=== PATIENT | female | born 1980 | race Caucasian/White ===

== ENCOUNTER 2023-01-01 16:46 | Emergency (ER) | payer MEDICAID, OTHER ==
[~2023-01-01] VITALS: Ht 157.5 cm; Wt 72.6 kg
[2023-01-01 18:01] VITALS: BP 185/125
[2023-01-01] MEDS ORDERED: NACL 0.9% 1,000 ML IV SCH (18:20)
[2023-01-01] MEDS ORDERED: ONDANSETRON 4 MG/2 ML VIAL IVP ONE (18:20)
[2023-01-01] MEDS ORDERED: MORPHINE SULFATE 4 MG/ML SYR IVP ONE (18:20)
--- NOTE | 2023-01-01 18:33 | NUR ---
PT C/O LT FOOT PAIN WITH DISCHARGE, FEVER, CHILLS, PAIN 10/10. NO ACUTE DISTRESS.
[2023-01-01 18:49] LABS: BASOPHILS # (AUTO) 0.1 K/uL (0.00-0.22); BASOPHILS % (AUTO) 0.8 % (0.0-2.0); EOSINOPHILS % (AUTO) 0.2 % (0.0-4.0); HEMATOCRIT 36.6 % (36-48); HEMOGLOBIN 12.7 g/dL (12.0-16.0); LYMPHOCYTES # (AUTO) 1.8 K/uL (2.5-16.5); LYMPHOCYTES % (AUTO) 14.5 % (20.5-51.1); MEAN CORPUSCULAR HEMOGLOBIN 30 pg (27-31); MEAN CORPUSCULAR HGB CONC 35 g/dL (33-37); MEAN CORPUSCULAR VOLUME 86.4 fL (80-94); MONOCYTES # (AUTO) 0.9 K/uL (0.8-1.0); MONOCYTES % (AUTO) 7.2 % (1.7-9.3); NEUTROPHILS # (AUTO) 9.5 K/uL (1.8-7.7); NEUTROPHILS % (AUTO) 77.3 % (42.2-75.2); PLATELET COUNT (AUTO) 323 K/uL (140-450); RED BLOOD CELL COUNT(AUTO) 4.24 MIL/uL (4.20-5.40); RED CELL DISTRIBUTION WIDTH 12.8 % (11.6-13.7); WHITE BLOOD COUNT (AUTO) 12.2 K/uL (4.8-10.8)
[2023-01-01] MEDS ORDERED: ceFAZolin 1,000 MG VIAL ONE (19:03)
[2023-01-01] MEDS ORDERED: BACITRACIN OINT 500 UNITS/GM PKT TP ONE (19:20)
[2023-01-01 19:21] LABS: ALBUMIN 3.8 g/dL (3.4-5.0); ANION GAP 12.3 (8-16); CARBON DIOXIDE 32.5 mmol/L (21-32); CREATININE 1.3 mg/dL (0.6-1.3); TOTAL BILIRUBIN 0.5 mg/dL (0.0-1.0)
--- NOTE | 2023-01-01 19:21 | NUR ---
WOUND TO L TOE IRRIGATED AND DRESSED WITH NON ADHERENT.
[2023-01-01 19:24] LABS: POTASSIUM 2.8 mmol/L (3.5-5.1)
--- NOTE | 2023-01-01 19:28 | NUR ---
PT IS WITH THE SON. NO ACUTE DISTRESS NOTED.
[2023-01-01] MEDS ORDERED: POTASSIUM CHLORIDE 10 MEQ TABER PO ONE (19:35)
[2023-01-01] MEDS ORDERED: CEPH-588 PO (19:42)
[2023-01-01] MEDS ORDERED: ACET-10509 PO (19:42)
[2023-01-01] MEDS ORDERED: BACTO TP (19:42)
[2023-01-01] MEDS ORDERED: SULF-59 PO (19:42)
[2023-01-01 20:10] VITALS: BP 158/96
--- NOTE | 2023-01-01 21:29 | NUR ---
Patient discharged with v/s stable. Written and verbal after care instructions given and explained. Patient verbalized understanding. Wheel Chair Assisted with to home. All questions addressed prior to discharge. Advised to follow up with PMD. PT LEFT WITH HER BELONGINGS AND ACCOMPANY WITH HIS SON
[2023-01-02] MEDS ORDERED: SULF-59 PO (09:14)
[2023-01-02] MEDS ORDERED: CEPH-588 PO (09:14)
[2023-01-02] MEDS ORDERED: ACET-10509 PO (09:14)
[2023-01-02] MEDS ORDERED: BACTO TP (09:14)
== END 2023-01-01 20:20 | disposition home or self-care (01) ==
LOC: MED 16:46
DX: S91.135A Puncture wound without foreign body of left lesser toe(s) without damage to nail, initial encounter (principal); E87.6 Hypokalemia; I10 Essential (primary) hypertension; Z79.899 Other long term (current) drug therapy; X58.XXXA Exposure to other specified factors, initial encounter; Y93.89 Activity, other specified; Y92.89 Other specified places as the place of occurrence of the external cause; Y99.8 Other external cause status
CPT/HCPCS: 36415; 73660; 80053; 83605; 85025; 86140; 87040; 96365; 96375; 99284; J0690; J2270; J2405; Q0092

== ENCOUNTER 2023-10-12 18:44 | Emergency (ER) | payer MEDICAID, OTHER ==
[~2023-10-12] VITALS: Ht 165.1 cm; Wt 66.2 kg
[~2023-10-12 18:44] MED LIST: ACET-10509 PO; BACTO TP; CEPH-588 PO; SULF-59 PO
[2023-10-12 18:58] VITALS: BP 129/97; PULSE 140; RESP 19; TEMP 101.1; O2SAT 98
[2023-10-12] MEDS ORDERED: IBUPROFEN 600 MG TAB PO ONE (19:55)
[2023-10-12] MEDS ORDERED: ACETAMINOPHEN EXTRA STRENGTH 500 MG TAB PO ONE (19:55)
[2023-10-12] MEDS ORDERED: ONDANSETRON 4 MG ODT PO ONE (20:00)
[2023-10-12] MEDS ORDERED: ONDA-188 SL (20:17)
[2023-10-12] MEDS ORDERED: IBUP-2213 PO (20:17)
[2023-10-12 20:35] LABS: FLU A ANTIGEN negative (NEGATIVE); FLU B ANTIGEN NEGATIVE (NEGATIVE)
[2023-10-12 20:50] VITALS: BP 129/97; PULSE 140; RESP 19; TEMP 101.1; O2SAT 98
== END 2023-10-12 20:50 | disposition home or self-care (01) ==
LOC: MED 18:44
DX: B34.9 Viral infection, unspecified (principal); Z20.822 Contact with and (suspected) exposure to COVID-19; Z79.899 Other long term (current) drug therapy; Z79.1 Long term (current) use of non-steroidal anti-inflammatories (NSAID); Z79.2 Long term (current) use of antibiotics
CPT/HCPCS: 87426; 87804; 99284; Q0162

== ENCOUNTER 2023-12-16 18:49 | Emergency (ER) | payer OTHER ==
[~2023-12-16] VITALS: Ht 167.6 cm; Wt 63.5 kg
[~2023-12-16 18:49] MED LIST changes: +IBUP-2213 PO; +ONDA-188 SL
[2023-12-16 19:11] VITALS: BP 136/72; PULSE 92; RESP 16; TEMP 98; O2SAT 98
[2023-12-16] MEDS ORDERED: ACET-10509 PO (19:25)
[2023-12-16] MEDS ORDERED: AMOX875T3 PO (19:25)
[2023-12-16] MEDS ORDERED: BENZ-300 PO (19:25)
[2023-12-16] MEDS: ACETAMINOPHEN EXTRA STRENGTH 500 MG TAB PO ONE (19:37)
[2023-12-16 19:53] LABS: FLU A ANTIGEN negative (NEGATIVE); FLU B ANTIGEN negative (NEGATIVE)
== END 2023-12-16 19:40 | disposition home or self-care (01) ==
LOC: MED 18:49
DX: J02.9 Acute pharyngitis, unspecified (principal); Z20.822 Contact with and (suspected) exposure to COVID-19; Z79.899 Other long term (current) drug therapy
CPT/HCPCS: 87081; 99283